=== PATIENT | female | born 1970 | race Caucasian/White ===

== ENCOUNTER 2017-02-22 22:45 | Emergency (ER) | payer MEDICARE ==
[~2017-02-22] VITALS: Ht 167.6 cm; Wt 102.1 kg
[2017-02-23 00:15] LABS: Albumin 3.5 g/dL (3.4-5.0); Anion Gap 10 (5-15); Aspartate Aminotransferase 51 U/L (15-37); BUN/Creatinine Ratio 12.5; Blood Urea Nitrogen 9 mg/dL (7-18); Calcium 8.6 mg/dL (8.5-10.1); Carbon Dioxide 23 mmol/L (21-32); Chloride 107 mmol/L (98-107); GFR African American 112 mL/min; GFR Non-African American 92 mL/min; Glucose 163 mg/dL (74-106); Potassium 3.7 mmol/L (3.5-5.1); Sodium 140 mmol/L (136-145)
[2017-02-23 00:16] LABS: Basophils # (auto) 0.1 uL; Basophils % (auto) 0.6 % (0.0-2.0); Eosinophils # (auto) 0.2 uL; Eosinophils % (auto) 2.4 % (0.0-7.0); Hematocrit 43.1 % (36.0-46.0); Hemoglobin 14.9 g/dL (12.2-16.2); Lymphocytes # (auto) 3.5 uL; Lymphocytes % (auto) 37.9 % (10.0-50.0); Mean Corpuscular Hemoglobin 30.6 pg (28.0-32.0); Mean Corpuscular Hgb Conc. 34.5 g/dL (32.0-36.0); Mean Corpuscular Volume 88.8 fL (80.0-100.0); Mean Platelet Volume 8.5 fL (7.4-10.4); Monocytes # (auto) 0.5 uL; Monocytes % (auto) 5.7 % (0.0-12.0); Neutrophils % (auto) 53.4 % (37.0-80.0); Nucleated Red Blood Cells % 0.1 %; Platelet Count (auto) 286 10^3/uL (140-450); Red Cell Distribution Width 13.4 % (11.6-16.0); White Blood Cell 9.3 10^3/uL (4.4-10.8)
[2017-02-23 00:20] LABS: Alkaline Phosphatase 209 U/L (45-117); Bilirubin, Total 0.5 mg/dL (0.2-1.0); Total Protein 7.4 g/dL (6.4-8.2)
[2017-02-23] MEDS ORDERED: HYDROmorphone HCL 2 MG/ML VL IV ONE (03:15)
[2017-02-23] MEDS ORDERED: ONDANSETRON HCL 4 MG/2 ML VIAL IV ONE (03:15)
[2017-02-23 04:20] VITALS: BP 117/69
[2017-02-23] MEDS ORDERED: PROMETHAZINE HCL 25 MG/ML 1ML IV ONE (05:00)
== END 2017-02-23 06:14 | disposition home or self-care (01) ==
LOC: ER 22:45
DX: S76.012A Strain of muscle, fascia and tendon of left hip, initial encounter (principal); S43.402A Unspecified sprain of left shoulder joint, initial encounter; M54.17 Radiculopathy, lumbosacral region; Z88.6 Allergy status to analgesic agent; Z88.8 Allergy status to other drugs, medicaments and biological substances; Z90.49 Acquired absence of other specified parts of digestive tract; W01.0XXA Fall on same level from slipping, tripping and stumbling without subsequent striking against object, initial encounter; Y93.89 Activity, other specified; Y99.8 Other external cause status; Y92.89 Other specified places as the place of occurrence of the external cause
CPT/HCPCS: 36415; 71020; 72131; 73020; 73501; 80053; 80320; 83690; 84484; 85025; 93005; 96374; 96375; 99285; J1170; J2405; J2550

== ENCOUNTER 2020-01-24 17:52 | Emergency (ER) | payer OTHER, MEDICARE ==
[~2020-01-24] VITALS: Ht 167.6 cm; Wt 88.5 kg
[2020-01-24 19:14] LABS: Urine Bacteria FEW /hpf (None Seen); Urine Blood Negative /uL (Negative); Urine Mucus FEW (None Seen); Urine WBC 10 /hpf (0 - 5)
[2020-01-24 20:35] VITALS: BP 130/74
== END 2020-01-24 20:39 | disposition home or self-care (01) ==
LOC: ER 17:52
DX: N39.0 Urinary tract infection, site not specified (principal); Z88.8 Allergy status to other drugs, medicaments and biological substances; Z88.6 Allergy status to analgesic agent
CPT/HCPCS: 74176; 81001

== ENCOUNTER 2022-12-27 15:43 | Emergency (ER) | payer MEDICARE ==
[~2022-12-27] VITALS: Ht 167.6 cm; Wt 92.4 kg
[2022-12-27 15:43] VITALS: BP 147/75
== END 2022-12-27 21:09 | disposition left against medical advice (07) ==
LOC: ER 15:43
DX: T24.001A Burn of unspecified degree of unspecified site of right lower limb, except ankle and foot, initial encounter (principal); Z53.21 Procedure and treatment not carried out due to patient leaving prior to being seen by health care provider

== ENCOUNTER 2022-12-30 13:00 | Emergency (ER) | payer MEDICARE ==
[~2022-12-30] VITALS: Ht 167.6 cm; Wt 92.4 kg
[2022-12-30] MEDS ORDERED: cefTRIAXone SOD 1,000 MG VL IM ONE (14:30)
[2022-12-30] MEDS ORDERED: ONDANSETRON ODT 4 MG TAB PO ONE (14:30)
[2022-12-30] MEDS ORDERED: HYDROmorphone HCL 2 MG/ML VL/or syr IM ONE (14:30)
[2022-12-30] MEDS ORDERED: SILVER SULFADIAZINE 1 % TOPICAL CREAM 50GM TOP ONE (14:30)
[2022-12-30 15:25] VITALS: PULSE 78; RESP 16; TEMP 98.2; O2SAT 98
[2022-12-30 15:53] VITALS: BP 115/66; PULSE 74; RESP 15
== END 2022-12-30 15:55 | disposition home or self-care (01) ==
LOC: ER 13:00
DX: T24.231A Burn of second degree of right lower leg, initial encounter (principal); Z48.00 Encounter for change or removal of nonsurgical wound dressing; Z88.5 Allergy status to narcotic agent; Z88.6 Allergy status to analgesic agent; Z91.040 Latex allergy status; Z88.8 Allergy status to other drugs, medicaments and biological substances; X17.XXXA Contact with hot engines, machinery and tools, initial encounter; Y93.89 Activity, other specified; Y92.89 Other specified places as the place of occurrence of the external cause; Y99.8 Other external cause status
CPT/HCPCS: 16020; 96372; 99284; J0696; J1170; Q0162

== ENCOUNTER 2023-03-05 21:30 | Inpatient (IN) | payer MEDICARE ==
[~2023-03-05] VITALS: Ht 167.6 cm; Wt 88.6 kg
[2023-03-05 21:55] LABS: Basophils # (auto) 0.1 10 ^3/uL (0-0.2); Basophils % (auto) 0.8 % (0.0-2.0); Eosinophils # (auto) 0.2 10 ^3/uL (0-0.8); Eosinophils % (auto) 2.1 % (0.0-7.0); Hematocrit 43.5 % (36.0-46.0); Hemoglobin 14.8 g/dL (12.2-16.2); Lymphocytes # (auto) 2.8 10 ^3/uL (0.4-5.4); Lymphocytes % (auto) 32.9 % (10.0-50.0); Mean Corpuscular Hemoglobin 30.5 pg (28.0-32.0); Mean Corpuscular Hgb Conc. 33.9 g/dL (32.0-36.0); Monocytes # (auto) 0.5 10 ^3/uL (0-1.3); Monocytes % (auto) 5.8 % (0.0-12.0); Neutrophils % (auto) 58.4 % (37.0-80.0); Nucleated Red Blood Cells % 0.1 %; Red Blood Cells 4.83 10^6/uL (4.0-5.20); Red Cell Distribution Width 13.7 % (11.8-14.3); White Blood Cell 8.6 10^3/uL (4.4-10.8)
[2023-03-05 22:14] LABS: Alanine Aminotransferase 30 U/L (7-40); Albumin 4.9 g/dL (3.2-4.8); Alkaline Phosphatase 149 U/L (46-116); Anion Gap 5 (5-15); Aspartate Aminotransferase 20 U/L (13-40); BUN/Creatinine Ratio 9.7 (10.0-20.0); Bilirubin, Total 0.3 mg/dL (0.2-1.0); Blood Urea Nitrogen 9 mg/dL (9-23); Calcium 9.7 mg/dL (8.7-10.4); Carbon Dioxide 26 mmol/L (20-30); Chloride 108 mmol/L (98-107); Glucose 113 mg/dL (74-106); Magnesium 1.8 mg/dL (1.6-2.6); Potassium 3.8 mmol/L (3.5-5.1); Sodium 139 mmol/L (136-145); Total Protein 7.3 g/dL (5.7-8.2)
[2023-03-05] MEDS ORDERED: SODIUM CHLORIDE 0.9% 1,000 ML IV ONE (22:15)
[2023-03-05] MEDS ORDERED: NITROGLYCERIN 0.4 MG SL TAB SL ONE (22:15)
[2023-03-05] MEDS ORDERED: ASPirin 325 MG TAB PO ONE (22:15)
[2023-03-05 22:19] LABS: INR 1.12 (0.9-1.15); Partial Thromboplastin Time 27.1 SEC (24.5-34.5); Prothrombin Time 11.7 sec (9.3-11.8)
[2023-03-05] MEDS ORDERED: LITH300C3 PO (22:23)
[2023-03-05] MEDS ORDERED: CITA-73 PO (22:23)
[2023-03-05] MEDS ORDERED: DOXE10CA34 PO (22:23)
[2023-03-05] MEDS ORDERED: MORPHINE SULFATE INJ 2 MG/ml SYRG IV PRN (22:30)
[2023-03-05] MEDS ORDERED: NITROGLYCERIN 0.4 MG SL TAB SL PRN (22:30)
[2023-03-06] VITALS (7 sets, daily range): BP systolic 107–131; BP diastolic 56–66; PULSE 54–81; RESP 15–18; TEMP 36.8; O2SAT 94–97
[2023-03-06] MEDS ORDERED: ONDANSETRON ODT 4 MG TAB PO ONE (01:15)
[2023-03-06] MEDS ORDERED: ONDANSETRON HCL 4 MG/2 ML VIAL IV PRN (03:15)
[2023-03-06] MEDS ORDERED: DEXTROSE (50%) 50ML SYRG IV PRN (03:15)
[2023-03-06] MEDS ORDERED: ONDANSETRON ODT 4 MG TAB PO PRN (03:15)
[2023-03-06] MEDS: SODIUM CHLORIDE 0.9% 1,000 ML IV SCH ×2 (03:20→15:27)
[2023-03-06] MEDS ORDERED: CITA10TA8 PO (03:47)
[2023-03-06] MEDS ORDERED: SEMA2INJ3 SC (03:48)
[2023-03-06] MEDS: InsuLIN REG 1unit/0.01ml Soln (100units/ml) SC SCH ×3 (05:19→17:00)
[2023-03-06] MEDS: ACCU-CHEK COMFORT CURVE STRIP VI SCH ×3 (05:20→17:00)
[2023-03-06 06:44] LABS: Alanine Aminotransferase 26 U/L (7-40); Albumin 3.9 g/dL (3.2-4.8); Alkaline Phosphatase 126 U/L (46-116); Anion Gap 4 (5-15); Aspartate Aminotransferase 21 U/L (13-40); BUN/Creatinine Ratio 8.8 (10.0-20.0); Bilirubin, Total 0.3 mg/dL (0.2-1.0); Blood Urea Nitrogen 7 mg/dL (9-23); Calcium 8.5 mg/dL (8.7-10.4); Carbon Dioxide 25 mmol/L (20-30); Chloride 111 mmol/L (98-107); Glucose 116 mg/dL (74-106); Potassium 3.7 mmol/L (3.5-5.1); Sodium 140 mmol/L (136-145); Total Protein 5.8 g/dL (5.7-8.2)
[2023-03-06] MEDS: LITHIUM CARBONATE 300 MG TAB PO SCH ×2 (07:17→14:03)
[2023-03-06 07:48] LABS: Basophils # (auto) 0 10 ^3/uL (0-0.2); Basophils % (auto) 0.5 % (0.0-2.0); Eosinophils # (auto) 0.2 10 ^3/uL (0-0.8); Eosinophils % (auto) 2.6 % (0.0-7.0); Hematocrit 40.1 % (36.0-46.0); Hemoglobin 13.2 g/dL (12.2-16.2); Lymphocytes # (auto) 2.6 10 ^3/uL (0.4-5.4); Lymphocytes % (auto) 32.9 % (10.0-50.0); Mean Corpuscular Hemoglobin 30.7 pg (28.0-32.0); Mean Corpuscular Hgb Conc. 32.9 g/dL (32.0-36.0); Mean Corpuscular Volume 93.3 fL (80.0-100.0); Monocytes # (auto) 0.4 10 ^3/uL (0-1.3); Monocytes % (auto) 5.6 % (0.0-12.0); Neutrophils # (auto) 4.6 10 ^3/uL (1.6-8.6); Neutrophils % (auto) 58.4 % (37.0-80.0); Nucleated Red Blood Cells % 0.1 %; Red Cell Distribution Width 13.9 % (11.8-14.3); White Blood Cell 7.8 10^3/uL (4.4-10.8)
[2023-03-06] MEDS: ENOXAPARIN SOD 40 MG/0.4 ML SYRINGE SC SCH ×2 (09:56→10:00)
[2023-03-06] MEDS ORDERED: CITALOPRAM HYDROBR 20 MG TAB PO SCH (10:00)
[2023-03-06] MEDS ORDERED: ASPirin 81 mg TAB PO SCH (10:00)
== END 2023-03-06 17:52 | disposition left against medical advice (07) | DRG 303 ==
LOC: ER 21:30 → TELE 22:22 → TELE-CENTR 03-06 03:22
PROVIDERS: ADMIT Nurse Practitioner Family; ATTEND Family Medicine
DX: I25.10 Atherosclerotic heart disease of native coronary artery without angina pectoris (principal); E66.01 Morbid (severe) obesity due to excess calories; Z68.31 Body mass index [BMI] 31.0-31.9, adult; E11.9 Type 2 diabetes mellitus without complications; F32.A Depression, unspecified; Z53.29 Procedure and treatment not carried out because of patient's decision for other reasons; I10 Essential (primary) hypertension; Z90.49 Acquired absence of other specified parts of digestive tract; Z79.84 Long term (current) use of oral hypoglycemic drugs; Z82.49 Family history of ischemic heart disease and other diseases of the circulatory system; Z88.6 Allergy status to analgesic agent; Z90.710 Acquired absence of both cervix and uterus
CPT/HCPCS: 36415; 71045; 80053; 82962; 83735; 83880; 84443; 84484; 85025; 85379; 85610; 85730; 93005; 93306; 96361; 96374; G0378; J2405; Q0162